=== PATIENT | male | born 2000 | race Caucasian/White ===

== ENCOUNTER 2023-01-27 15:45 | Emergency (ER) | payer MEDICAID ==
[~2023-01-27] VITALS: Ht 190.5 cm; Wt 90.0 kg
[2023-01-27 16:34] VITALS: BP 109/70
== END 2023-01-27 17:59 | disposition home or self-care (01) ==
LOC: ER 15:46
DX: J06.9 Acute upper respiratory infection, unspecified (principal); R09.1 Pleurisy; R05.9 Cough, unspecified; R52 Pain, unspecified
CPT/HCPCS: 71046; 99283